=== PATIENT | male | born 1960 | race Caucasian/White ===

== ENCOUNTER → 2018-08-18 | Outpatient (CLI) | payer BC | LOC: CARD 11:10 | PROVIDERS: ATTEND Nurse Practitioner Family | DX: I49.3 Ventricular premature depolarization (principal); R42 Dizziness and giddiness; R51 Headache | CPT/HCPCS: 93225; 93226 ==

== ENCOUNTER 2020-08-20 05:42 | Outpatient (RCR) | payer BC ==
[~2020-08-20] VITALS: Ht 172.7 cm; Wt 110.2 kg
[2020-08-20] MEDS ORDERED: ROSU10TA28 PO (12:38)
== END 2020-08-20 13:07 | disposition home or self-care (01) ==
LOC: PREOP 05:42
PROVIDERS: ATTEND Surgery
DX: Z01.818 Encounter for other preprocedural examination (principal)

== ENCOUNTER → 2020-08-24 | Outpatient (CLI) | payer BC ==
[~2020-08-24] MED LIST: ROSU10TA28 PO
== END ==
LOC: LAB FS 11:23
PROVIDERS: ATTEND Surgery
DX: Z01.812 Encounter for preprocedural laboratory examination (principal); Z12.11 Encounter for screening for malignant neoplasm of colon; Z20.828 Contact with and (suspected) exposure to other viral communicable diseases
CPT/HCPCS: 87635

== ENCOUNTER 2020-08-27 07:45 | Day surgery (SDC) | payer BC ==
[~2020-08-27] VITALS: Ht 172.7 cm; Wt 110.2 kg
[2020-08-27] MEDS ORDERED: LACTATED RINGERS 1,000 ML IV ONE (07:57)
[2020-08-27 08:00] VITALS: BP 139/88
[2020-08-27] MEDS ORDERED: LACTATED RINGERS 1,000 ML IV PRN (08:00)
--- NOTE | 2020-08-27 08:15 | Progress Note-Pre Operative ---
Pre-Operative Progress Note H&P Reviewed The H&P was reviewed, patient examined and no changes noted. Time Seen by Provider: 08:14 Date H&P Reviewed: Aug 27, 2020 Time H&P Reviewed: 08:13 Pre-Operative Diagnosis: screening colonoscopy TRINA MEDNEZ DO Aug 27, 2020 08:15
[2020-08-27] MEDS ORDERED: MIDAZOLAM 2 MG/2 ML (VERSED) VIAL ONE (09:19)
[2020-08-27] MEDS ORDERED: PROPOFOL INJECTION 0 ML IV ONE ×2 (09:19→09:35)
[2020-08-27 09:45] VITALS: BP 104/60
--- NOTE | 2020-08-27 09:46 | Progress Note-Post Operative ---
Post-Operative Progess Note Surgeon (s)/Plant Maintenance Worker (s) Surgeon TRINA MENDEZ DO Plant Maintenance Worker: none Pre-Operative Diagnosis screening colonoscopy Post-Operative Diagnosis int hemorrhoids Procedure & Operative Findings Date of Procedure 08/27/20 Procedure Performed/Findings colon Anesthesia Type IV sedation by [employer] Estimated Blood Loss Estimated blood loss (mL): none Specimens/Packing Specimens Removed none TRINA MENDEZ DO Aug 27, 2020 09:46
--- NOTE | 2020-08-27 09:47 | Endoscopy Discharge Instruct ---
Endo Procedure/Findings Findings 1.: Internal Hemorrhoids Discharge Instructions - Activity: You might feel a little sleepy until tomorrow. This is due to the me dicine you received to relax you. Until tomorrow, you should: NOT drive a car, operate machinery or power tools. NOT drink any alcoholic beverages. NOT make any important decisions or sign importortant papers. Do not return to work until tomorrow, unless otherwise instructed. Resume previous activities tomorrow. Diet: Start by taking liquids. If you tolerate liquids, advance to solid food. 1.: Colonscopy in 10 years Notify Physician - If you experience excessive bleeding, unusual abdominal pain, fever, or chest pain, contact your doctor immediately. TRINA MENDEZ DO Aug 27, 2020 09:47
[2020-08-27 09:50] VITALS: BP 103/60
[2020-08-27 09:55] VITALS: BP 104/58
[2020-08-27 10:30] VITALS: BP 132/83
[2020-08-27 11:10] VITALS: BP 132/83
--- NOTE | 2020-08-27 12:22 | Anesthesia-General Post-Op ---
MAC Patient Condition Mental Status/LOC: Same as Preop Cardiovascular: Satisfactory Nausea/Vomiting: Absent Respiratory: Satisfactory Pain: Controlled Complications: Absent Post Op Complications Complications None Follow Up Care/Instructions Patient Instructions None needed. Anesthesiology Discharge Order Discharge Order Patient is doing well, no complaints, stable vital signs, no apparent adverse anesthesia problems. No complications reported per nursing. SERAFIN RUSS CRNA Aug 27, 2020 12:21
--- NOTE | 2020-08-27 20:09 | OPERATIVE REPORT ---
DATE OF SERVICE: 08/27/2020 PREOPERATIVE DIAGNOSIS: Screening colonoscopy. POSTOPERATIVE DIAGNOSIS: Internal hemorrhoids. PROCEDURE: Colonoscopy. SURGEON: Mikel Carter DO DUST COLLECTOR TREATER: None. ANESTHESIA: IV sedation by the [employer]. SPECIMENS: None. BLOOD LOSS: None. FLUIDS: Per anesthesia. POSTOPERATIVE CONDITION: Stable. INDICATION FOR PROCEDURE: The patient is a 59-year-old male who has never had a colonoscopy, needs one for screening. FINDINGS: The patient had some internal hemorrhoids, but no other obvious pathology. PROCEDURE NOTE: After informed consent was obtained, the patient was brought to the endoscopy suite, placed in bed in left lateral decubitus position. He was administered IV sedation by the [employer] who then monitored his vitals the entire time, heart rate, blood pressure and pulse ox and the scope was inserted, pushed all the way into about 150 cm, able to get to the cecum, took a picture of appendiceal orifice, noted the ileocecal valve and then slowly withdrew the scope insufflating to look circumferentially at the molina looking the cecum, up the ascending colon to the hepatic flexure, then down the transverse colon, splenic flexure, into the descending colon and down in the sigmoid and finally into the rectum, retroflexed in the rectal vault, saw some at least grade I, possibly grade II internal hemorrhoids, took a picture of this and then removed the scope. The patient tolerated the procedure and he was recovered in endoscopy suite. Job ID: [id number] DocumentID: [id number] Dictated Date: 08/27/2020 14:58:36 Ladderman Date: 08/27/2020 20:08:10 Dictated By: MIKEL CARTER DO
== END 2020-08-27 11:10 | disposition home or self-care (01) ==
LOC: ENDO 07:45
PROVIDERS: ATTEND Surgery
DX: Z12.11 Encounter for screening for malignant neoplasm of colon (principal); K64.8 Other hemorrhoids; E66.9 Obesity, unspecified; Z68.36 Body mass index [BMI] 36.0-36.9, adult; Z80.9 Family history of malignant neoplasm, unspecified